=== PATIENT | male | born 1995 | race Two or more races ===

== ENCOUNTER 2017-11-27 09:47 | Emergency (ER) | payer SELFPAY ==
[~2017-11-27] VITALS: Ht 180.3 cm; Wt 104.3 kg
== END 2017-11-27 10:04 | disposition left against medical advice (07) ==
LOC: ER 09:54
DX: S81.012D Laceration without foreign body, left knee, subsequent encounter (principal); Z48.02 Encounter for removal of sutures; Z53.21 Procedure and treatment not carried out due to patient leaving prior to being seen by health care provider

== ENCOUNTER 2017-11-28 10:11 | Emergency (ER) | payer SELFPAY ==
[~2017-11-28] VITALS: Ht 180.3 cm; Wt 108.9 kg
[2017-11-28 11:15] VITALS: BP 131/50
== END 2017-11-28 11:52 | disposition home or self-care (01) ==
LOC: ER 10:30
DX: S81.012D Laceration without foreign body, left knee, subsequent encounter (principal); F17.210 Nicotine dependence, cigarettes, uncomplicated; Z48.02 Encounter for removal of sutures

== ENCOUNTER 2020-01-11 07:40 | Emergency (ER) | payer BC, MEDICAID ==
[~2020-01-11] VITALS: Ht 177.8 cm; Wt 86.2 kg
[2020-01-11 07:45] VITALS: BP 138/83
== END 2020-01-11 08:41 | disposition left against medical advice (07) ==
LOC: ER 07:40
DX: H57.89 Other specified disorders of eye and adnexa (principal); Z53.21 Procedure and treatment not carried out due to patient leaving prior to being seen by health care provider